=== PATIENT | male | born 1985 | race Asian ===

== ENCOUNTER 2017-03-07 09:11 | Emergency (ER) | payer OTHER ==
[~2017-03-07] VITALS: Ht 170.2 cm; Wt 95.3 kg
[2017-03-07 09:20] VITALS: BP 143/86
[2017-03-07] MEDS ORDERED: KETOROLAC TROMETHAMINE 60 MG/2 ML INJ. IM ONE (09:30)
[2017-03-07] MEDS ORDERED: ORPHENADRINE CITRATE 60 MG/2 ML VIAL. IM ONE (09:30)
--- NOTE | 2017-03-07 10:09 | PHYS DOC ---
Past Medical History Past Medical History: No Pertinent History Past Surgical History: No Surgical History Alcohol Use: Rarely Drug Use: None Adult General Chief Complaint Chief Complaint: BACK PAIN - NO INJURY HPI HPI Patient is a 31 year old male who presents with complaint of low back pain. Patient states that he hurt his back earlier this morning after bending over to pick something up. Patient states that he did not lift anything. Patient states that he is having 7 out of 10 back pain that is sharp and worsens with movement at this time. Patient denies any history of significant back problems and is not treated for any chronic pain issues. Patient has not taken any medications at this time to help with symptoms. Patient denies any drug allergies. Patient' s pain does not radiate. Review of Systems Review of Systems Constitutional: Denies fever or chills [] Eyes: Denies change in visual acuity, redness, or eye pain [] HENT: Denies nasal congestion or sore throat [] Respiratory: Denies cough or shortness of breath [] Cardiovascular: No additional information not addressed in HPI [] GI: Denies abdominal pain, nausea, vomiting, bloody stools or diarrhea [] : Denies dysuria or hematuria [] Musculoskeletal: Low back pain [] Integument: Denies rash or skin lesions [] Neurologic: Denies headache, focal weakness or sensory changes [] Current Medications Current Medications Current Medications Medications (Trade) Dose Ordered Sig/Adele Start Time Stop Time Status Last Admin Dose Admin Acetaminophen/ Hydrocodone Bitart (Lortab 7.5/325) 1 tab 1X ONCE 03/07/17 10:15 03/07/17 10:16 DC 03/07/17 10:21 1 TAB Ketorolac Tromethamine (Toradol Im) 60 mg 1X ONCE 03/07/17 09:30 03/07/17 09:31 DC 03/07/17 09:35 60 MG Orphenadrine Citrate (Norflex) 60 mg 1X ONCE 03/07/17 09:30 03/07/17 09:31 DC 03/07/17 09:36 60 MG Allergies Allergies Allergies Coded Allergies Type Severity Reaction Last Updated Verified No Known Drug Allergies 03/07/17 No Physical Exam Physical Exam Constitutional: Alert, afebrile, appears in moderate discomfort. [] HENT: Normocephalic, atraumatic, bilateral external ears normal, oropharynx moist, no oral exudates, nose normal. [] Eyes: PERRLA, EOMI, conjunctiva normal, no discharge. [] Neck: Normal range of motion, no tenderness, supple, no stridor. [] Cardiovascular:Heart rate regular rhythm, no murmur [] Lungs & Thorax: Bilateral breath sounds clear to auscultation [] Abdomen: Bowel sounds normal, soft, no tenderness, no masses, no pulsatile masses. [] Skin: Warm, dry, no erythema, no rash. [] Back: Bilateral lower lumbar paraspinous muscle tenderness to palpation, no midline tenderness, no flank ecchymosis. [] Extremities: No tenderness, no cyanosis, no clubbing, ROM intact, no edema. [] Neurologic: Alert and oriented X 3, normal motor function, normal sensory function, no focal deficits noted. [] Current Patient Data Vital Signs Vital Signs Date Time Temp Pulse Resp B/P (MAP) Pulse Ox O2 Delivery O2 Flow Rate FiO2 03/07/17 09:20 98.6 78 20 94 Room Air 98.6 EKG EKG Not performed [] Radiology/Procedures Radiology/Procedures [facility] [address] [place] [address] IMAGING REPORT Signed PATIENT: EDIL LANDRUM ACCOUNT: [id number] : 1985 LOCATION: ER AGE: 31 SEX: M EXAM STATUS: REG ER ORD. PHYSICIAN: BRONWYN LIU MD REASON: low back pain PROCEDURE: LUMBAR SPINE 2-3V LUMBAR SPINE 3 VIEWS Clinical Indication: low back pain, Crouched down to reach for something. Comparison: None. Findings: 5 lumbar type vertebral bodies. Vertebral body height is maintained. There is no evidence of acute fracture or acute malalignment. No disc space narrowing. The visualized pelvic bones are intact. Soft tissues unremarkable. IMPRESSION: No acute compression fracture or malalignment. DICTATED and SIGNED BY: JEFFERSON COLVIN MD DATE: 03/07/17 1041 CC: BRONWYN LIU MD; NO PCP ~ [] Course & Med Decision Making Course & Med Decision Making Pertinent Labs and Imaging studies reviewed. (See chart for details) Patient was treated with IM Toradol, Norflex, and [place]. Patient pain has improved and patient is able to ambulate in the emergency department independently. Patient will be continued on [place] and Naprosyn for outpatient treatment. Advise follow-up in one week primary doctor for reevaluation and return to emergency department for any worsening symptoms. Patient voiced understanding and in agreement with treatment plan. Dragon Disclaimer Dragon Disclaimer This electronic medical record was generated, in whole or in part, using a voice recognition dictation system. Departure Departure Impression: Primary Impression: Low back strain Disposition: HOME, SELF-CARE Condition: IMPROVED Referrals: NO PCP (PCP) Patient Instructions: Back Pain, Adult Additional Instructions: Follow-up with your primary doctor in 1 week if symptoms have not improved. Return to the emergency department for any worsening symptoms. Scripts Hydrocodone/Apap 5-325 (NORCO 5-325 TABLET) 1 Each Tablet 1-2 TAB PO Q4-6HRS Y for PAIN, #20 TAB Prov: BRONWYN LIU MD 03/07/17 Naproxen (NAPROSYN) 500 Mg Tablet 1 TAB PO BID, #20 TAB 0 Refills Prov: BRONWYN LIU MD 03/07/17 Problem Qualifiers Primary Impression: Low back strain Encounter type: initial encounter Qualified Codes: S39.012A - Strain of muscle, fascia and tendon of lower back, initial encounter BRONWYN LIU MD Mar 07, 2017 10:09
[2017-03-07] MEDS ORDERED: HYDROcodone/APAP 7.5/325MG 1 TAB TABLET PO ONE (10:15)
--- NOTE | 2017-03-07 10:46 | RAD ---
LUMBAR SPINE 3 VIEWS Clinical Indication: low back pain, Crouched down to reach for something. Comparison: None. Findings: 5 lumbar type vertebral bodies. Vertebral body height is maintained. There is no evidence of acute fracture or acute malalignment. No disc space narrowing. The visualized pelvic bones are intact. Soft tissues unremarkable. IMPRESSION: No acute compression fracture or malalignment.
[2017-03-07] MEDS ORDERED: NAPR500T PO (10:50)
[2017-03-07] MEDS ORDERED: HYDR-971 PO (10:50)
== END 2017-03-07 10:55 | disposition home or self-care (01) ==
LOC: ER 09:11
DX: S39.012A Strain of muscle, fascia and tendon of lower back, initial encounter (principal); X58.XXXA Exposure to other specified factors, initial encounter; Y93.89 Activity, other specified; Y92.89 Other specified places as the place of occurrence of the external cause; Y99.8 Other external cause status
CPT/HCPCS: 72100; 96372; 99284; J1885; J2360